=== PATIENT | male | born 1935 | race Hispanic/Latino ===

== ENCOUNTER 2017-01-04 19:40 | Emergency (ER) | payer OTHER, MEDICARE ==
[2017-01-04] MEDS ORDERED: methylPREDNISolone Sod Succ/PF 125 MG/2 ML VIAL ONE (20:05)
[2017-01-04] MEDS ORDERED: diphenhydrAMINE 25 MG CAP ONE (20:05)
== END 2017-01-04 20:34 | disposition home or self-care (01) ==
LOC: ERS 19:40
DX: L25.3 Unspecified contact dermatitis due to other chemical products (principal); I10 Essential (primary) hypertension
CPT/HCPCS: 96372; J2930

== ENCOUNTER 2018-08-17 15:40 | Inpatient (IN) | payer OTHER, MEDICARE ==
[2018-08-17 16:00] VITALS: BMI 28.5
[2018-08-17] MEDS ORDERED: Ondansetron PF 4 MG/2 ML Vial SLOW IVP PRN (16:02)
[2018-08-17] MEDS ORDERED: Acetaminophen 325 MG TAB PO PRN (16:02)
[2018-08-17] MEDS ORDERED: Loperamide HCl 2 MG CAP PO PRN (16:02)
[2018-08-17 16:24] VITALS: BP 154/58
[2018-08-17 16:32] LABS: #Basophils 0.1 thou/uL (0.0-0.2); #Eosinphils 0.1 thou/uL (0.0-0.7); #Lymphocytes 2.8 thou/uL (1.20-3.40); #Monocytes 0.7 thou/uL (0.11-0.59); #Neutrophils 5.7 thou/uL (1.40-6.50); %Basophils 0.8 % (0.0-1.0); %Eosinophils 0.7 % (0.0-10.0); %Lymphocytes 29.8 % (21.0-51.0); %Monocytes 7.5 % (0.0-10.0); %Neutrophils 61.2 % (42.0-75.0); Hemoglobin 14.8 g/dL (14.0-18.0); Mean Corpuscular HGB CONC 33.6 g/dL (32.0-36.0); Mean Corpuscular Volume 98.1 fL (78.0-98.0); Mean Platelet Volume 7.7 fL (7.4-10.4); Platelet Count 252 thou/uL (130-400); RBC Distribution Width 12.7 % (11.5-14.5); Red Blood Cell (RBC) Count 4.49 mill/uL (4.70-6.10); White Blood Cell (WBC) Count 9.2 thou/uL (4.8-10.8)
[2018-08-17 16:54] LABS: ALT (SGPT) 30 U/L (8-55); AST (SGOT) 16 U/L (5-34); Albumin 3.9 g/dL (3.4-4.8); Alkaline Phosphatase 100 U/L (40-150); Anion Gap 10 mmol/L (10-20); BUN (Urea Nitrogen) 12 mg/dL (8.4-25.7); Calc. Creatinine Clearance 73 mL/min (70-130); Calcium 9.3 mg/dL (7.8-10.44); Carbon Dioxide 28 mmol/L (23-31); Chloride 106 mmol/L (98-107); Estimated GFR-MDRD 77; Globulin 2.7 g/dL (2.4-3.5); Glucose 128 mg/dL (83-110); Protein, Total 6.6 g/dL (5.8-8.1); Sodium 139 mmol/L (136-145)
--- NOTE | 2018-08-17 17:22 | RAD ---
EXAM: Two views chest PROVIDED CLINICAL HISTORY: Complete heart block COMPARISON: None FINDINGS: Cardiac silhouette and pulmonary vasculature are within normal limits. Lungs are hyperexpanded, but no consolidation or pleural effusion is seen. There is a wedge-shaped compression fracture of the T12 vertebral body with apparent partial fusion of the T11 and T12 vertebral bodies. This is a stable finding when compared to a CTA of the abdomen on 06/25/2011. Degenerative changes are seen in the spine. There is osteopenia. Vascular calcifications are seen in the thoracic aorta. IMPRESSION: No acute cardiopulmonary process.
[2018-08-17 19:44] LABS: Bilirubin Negative (Negative); Blood, Urine Small (Negative); Clarity CLEAR (Clear); Glucose, Urine (Dipstick) Negative (Negative); Leukocyte Negative (Negative); Nitrite Negative (Negative); Protein, Urine (Dipstick) Negative (Neg-Trace)
[2018-08-17 19:49] LABS: Bacteria/HPF None Seen HPF (None Seen); Hyaline Casts/LPF 0-3 HYALINE CAST LPF (0-3 Hyaline); Squamous Epithelial None Seen HPF (0-3); WBC/HPF None Seen HPF (0-3)
--- NOTE | 2018-08-17 20:08 | HP ---
HISTORY OF PRESENT ILLNESS: Mr. Emmanuel was seen in the office earlier today. He was found to be in complete heart block with heart rate low in the 30s. He is very symptomatic. With any exertion, he would get short winded. He was admitted for this and preparation for pacemaker tomorrow. Please see my note from today from the office for further details. MEDICATIONS: Reviewed. 1. Losartan 100 mg a day. 2. Amlodipine 10 mg a day. 3. Multivitamins daily. ALLERGIES: NO KNOWN DRUG ALLERGIES. PAST MEDICAL HISTORY: Hypertension. Further details per my note, please review. PHYSICAL EXAMINATION: VITAL SIGNS: Temperature 96.8, pulse 43, respiratory rate 16, sat 98% on 2 L, and blood pressure 166/62. GENERAL: Awake, alert, and oriented x3. No distress. HEENT: Normocephalic and atraumatic. NECK: Supple. LUNGS: Clear. CARDIOVASCULAR: S1 and S2. No S3 or S4. No murmurs. ABDOMEN: Soft. Positive bowel sounds. EXTREMITIES: No edema. SKIN: Warm and warm dry. LABORATORY DATA: Laboratory work was reviewed. ASSESSMENT/PLAN: 1. Complete heart block. 2. Hypertension. PLAN: 1. Dr. Nagy will place a permanent pacemaker tomorrow morning. 2. Continue to monitor in the IMCU for now. Dopamine or temporary pacer later today if he would become unstable. Job ID: [id number]
[2018-08-18] MEDS ORDERED: Midazolam HCl 5 mg/5 ml Vial ONE (06:47)
[2018-08-18] MEDS ORDERED: Fentanyl 250 MCG/5 ML VIAL ONE (06:47)
[2018-08-18] MEDS ORDERED: Vecuronium 10 MG VIAL ONE (06:48)
[2018-08-18] MEDS ORDERED: Dexmedetomidine 200 MCG/2 ML VIAL ONE (06:48)
[2018-08-18] MEDS ORDERED: Norepinephrine 4 MG/4 ML VIAL ONE (06:48)
[2018-08-18] MEDS ORDERED: CEFAZOLIN 1 GM VIAL ONE ×2 (08:37→09:11)
[2018-08-18] MEDS ORDERED: Gentamicin 80 MG/2 ML VIAL ONE (08:37)
[2018-08-18] MEDS ORDERED: Midazolam HCl 2 mg/2 ml Vial ONE (09:11)
--- NOTE | 2018-08-18 09:41 | EKG ---
Test Reason : Blood Pressure : / mmHG Vent. Rate : 038 BPM Atrial Rate : 058 BPM P-R Int : 000 ms QRS Dur : 150 ms QT Int : 536 ms P-R-T Axes : 061 053 113 degrees QTc Int : 426 ms Sinus bradycardia with complete heart block and Idioventricular rhythm Left bundle branch block Abnormal ECG When compared with ECG of 19-JAN-1994 10:02, Idioventricular rhythm has replaced Sinus rhythm Vent. rate has decreased BY 26 BPM Confirmed by ELOISA HORNER, SMayra ([id number]) on 08/18/2018 9:41:11 AM Referred By: SANG Confirmed By:DR. Tati AMIN MD
[2018-08-18] MEDS ORDERED: Acetaminophen/Codeine 30-300mg Tablet PO PRN (10:42)
--- NOTE | 2018-08-18 11:04 | RAD ---
XR Chest 1 View Portable History: [Complete heart block] Comparison: Radiograph prior day Findings: There is interval placement of a new dual-lead pacer. No pneumothorax. No focal airspace co nsolidation. No acute osseous abnormality. Impression: Uncomplicated placement dual-lead pacer.
[2018-08-18 15:16] VITALS: TEMP 97.8
--- NOTE | 2018-08-18 16:22 | CCL ---
DATE OF ADMISSION: 08/17/18 DATE OF PROCEDURE: 08/18/18 INDICATIONS: 83-year-old gentleman who was found to have complete third degree heart block with severe bradycardia . He was advised to undergo a dual chamber pacemaker insertion. He was taken to the cardiac cook house laborer today, where he was prepped and draped in the sterile fashion. The device was easily implanted withou t difficulties or complications. He was implanted with a dual chamber pacemaker which is MRI compatib le with [employer]. This is an [place] XT dual chamber device. No difficulties or complications encounte red. Two leads were placed, one In the atrium and one in the ventricle. Pacemaker was set with the up per rate at 120 and the lower rate was set at 60. Patient was given 1 mg of IV versed for conscious s edation. Throughout the procedure he was monitored by an independent observer present for heart rate, blood pressure and O2 saturations. Conscious sedation times was approximately 23 minutes. He tolerat ed the procedure well.
--- NOTE | 2018-08-18 17:19 | DIS ---
DATE OF ADMISSION: 08/17/2018 DATE OF DISCHARGE: 08/18/2018 PROCEDURES PERFORMED: 1. Permanent pacemaker placement. 2. Chest x-ray. SUMMARY: Mr. Emmanuel is a pleasant 83-year-old gentleman, who comes to the hospital, being admitted directly from the office for being found to be in complete heart block. Heart rate was in the mid 30s. He was admitted, placed in the IMCU, and pacemaker was successfully placed by Dr. Nagy earlier this morning. He is doing very well. His chest x-ray post pacemaker was unremarkable with no evidence of any complications. He is walking around, feeling much better, not a short winded as was before. DISCHARGE MEDICATIONS: Unchanged from admission. FOLLOWUP APPOINTMENTS: 1. With Dr. Nagy for wound check next week. 2. In [facility] in 1 month. 3. With myself in 1 month as well. Over 30 minutes was spent at bedside counseling for discharge. Job ID: [id number]
--- NOTE | 2018-08-19 09:20 | EKG ---
Test Reason : S/P PACEMAKER Blood Pressure : / mmHG Vent. Rate : 060 BPM Atrial Rate : 060 BPM P-R Int : 000 ms QRS Dur : 164 ms QT Int : 496 ms P-R-T Axes : -01 -56 078 degrees QTc Int : 496 ms AV dual-paced rhythm Abnormal ECG When compared with ECG of 17-AUG-2018 16:14, Electronic ventricular pacemaker has replaced Idioventricular rhythm Vent. rate has increased BY 22 BPM Confirmed by ELOISA HORNER, DR. Duffy ([id number]) on 08/19/2018 9:20:19 AM Referred By: ANA Confirmed By:DR. Tati AMIN MD
== END 2018-08-18 17:15 | disposition home or self-care (01) | DRG 244 ==
LOC: IMCU/EMU 15:40
PROVIDERS: ADMIT Internal Medicine Cardiovascular Disease; ATTEND Internal Medicine Cardiovascular Disease
PROC: 0JH606Z Insertion of Pacemaker, Dual Chamber into Chest Subcutaneous Tissue and Fascia, Open Approach (ICD-10-PCS; principal; 2018-08-18)
PROC: 02HK3JZ Insertion of Pacemaker Lead into Right Ventricle, Percutaneous Approach (ICD-10-PCS; 2018-08-18)
PROC: 02H63JZ Insertion of Pacemaker Lead into Right Atrium, Percutaneous Approach (ICD-10-PCS; 2018-08-18)
DX: I44.2 Atrioventricular block, complete (principal); I10 Essential (primary) hypertension; I35.0 Nonrheumatic aortic (valve) stenosis; N52.9 Male erectile dysfunction, unspecified; Z79.899 Other long term (current) drug therapy
CPT/HCPCS: 33208; 36415; 71045; 71046; 80053; 81003; 81015; 84443; 85025; 93005; 93010; 99152; 99153; C1785; C1898; J0690; J1580; J2250; J3010

== ENCOUNTER 2020-09-18 12:16 | Emergency (ER) | payer OTHER, MEDICARE | END 2020-09-18 13:41 | disposition home or self-care (01) | LOC: ERS 12:16 | DX: S70.01XA Contusion of right hip, initial encounter (principal); S80.211A Abrasion, right knee, initial encounter; I10 Essential (primary) hypertension; W05.0XXA Fall from non-moving wheelchair, initial encounter ==

== ENCOUNTER 2023-07-22 14:19 | Emergency (ER) | payer OTHER, BC, MEDICARE ==
[2023-07-22] MEDS ORDERED: Lidocaine 4% Patch TD SCH (17:00)
[2023-07-23] MEDS ORDERED: Transdermal Patch Removal TOP SCH (05:00)
== END 2023-07-22 18:42 | disposition home or self-care (01) ==
LOC: ERS 14:19
DX: S09.90XA Unspecified injury of head, initial encounter (principal); M25.511 Pain in right shoulder; I10 Essential (primary) hypertension; W01.0XXA Fall on same level from slipping, tripping and stumbling without subsequent striking against object, initial encounter; Z79.01 Long term (current) use of anticoagulants
CPT/HCPCS: 70450